=== PATIENT | female | born 1995 | race Two or more races ===

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

== ENCOUNTER 2017-07-26 22:00 | Emergency (ER) | payer OTHER ==
[2017-07-26 23:11] LABS: KETONE, URINE AUTO RFX NEGATIVE (NEGATIVE); NITRITE, URINE AUTO RFX NEGATIVE (NEGATIVE); RBC, URINE AUTO RFX 38 /HPF (0-3); SPECIFIC GRAVITY UR AUTO RFX 1.013 (1.002-1.035); SQUAM EPITHELIAL CELL UR AURFX 1 /HPF (0-6)
[2017-07-26 23:13] LABS: LEUKOCYTE ESTERASE UR AUTO RFX 3+ (NEGATIVE); WBC, URINE AUTO RFX TNTC /HPF (0-3)
[2017-07-27] MEDS: PHENAZOPYRIDINE 100 MG TAB PO ×2 (01:45)
[2017-07-27] MEDS: ACETAMINOPHEN 325 MG TAB PO ×2 (01:45)
[2017-07-27] MEDS: CIPROFLOXACIN 500 MG TAB PO ×2 (01:45)
== END 2017-07-27 01:47 | disposition home or self-care (01) ==
LOC: M ED 22:00
DX: N10 Acute pyelonephritis (principal); N30.91 Cystitis, unspecified with hematuria
CPT/HCPCS: 81001

== ENCOUNTER 2018-04-18 22:08 | Emergency (ER) | payer OTHER ==
[~2018-04-18] VITALS: Ht 162.6 cm; Wt 71.8 kg
[~2018-04-18 22:08] MED LIST: CIPR-249 PO; PYRI1TAB5 PO
[2018-04-18] MEDS ORDERED: WELLTAB38 (22:25)
[2018-04-18] MEDS ORDERED: TRINTAB3 (22:25)
[2018-04-18] MEDS ORDERED: PHENAZOPYRIDINE 100 MG TAB PO ONE (22:45)
[2018-04-18] MEDS ORDERED: CEPHALEXIN 500 MG CAP PO ONE (23:30)
[2018-04-18] MEDS ORDERED: KEFL500C17 PO (23:39)
[2018-04-18] MEDS ORDERED: PYRI1TAB5 PO (23:39)
[2018-04-18 23:46] VITALS: BP 121/72
[2018-04-19] MEDS ORDERED: CEPHALEXIN 500 MG CAP PO ONE
[2018-04-19] MEDS ORDERED: PHENAZOPYRIDINE 100 MG TAB PO SCH (09:00)
[2018-04-19] MEDS ORDERED: CEPHALEXIN 500 MG CAP PO SCH (09:00)
== END 2018-04-18 23:52 | disposition home or self-care (01) ==
LOC: M ED 22:08
DX: N39.0 Urinary tract infection, site not specified (principal); F41.8 Other specified anxiety disorders

== ENCOUNTER 2019-06-30 13:34 | Emergency (ER) | payer OTHER ==
[~2019-06-30] VITALS: Ht 165.1 cm; Wt 91.4 kg
[~2019-06-30 13:34] MED LIST changes: +KEFL500C17 PO; +TRINTAB; +WELLTAB38
[2019-06-30] MEDS ORDERED: PREN29TA4 PO (13:41)
[2019-06-30] MEDS ORDERED: ZOLO25TA PO (13:41)
[2019-06-30 14:51] VITALS: BP 118/66
[2019-06-30] MEDS ORDERED: NITR-67 PO (14:52)
[2019-06-30] MEDS ORDERED: NITROFURANTOIN (MACROBID) 100 MG CAP PO ONE (15:00)
== END 2019-06-30 15:06 | disposition home or self-care (01) ==
LOC: M ED 13:34
DX: O23.42 Unspecified infection of urinary tract in pregnancy, second trimester (principal); Z3A.27 27 weeks gestation of pregnancy; O99.342 Other mental disorders complicating pregnancy, second trimester; F33.9 Major depressive disorder, recurrent, unspecified; F41.9 Anxiety disorder, unspecified; Z79.899 Other long term (current) drug therapy

== ENCOUNTER 2021-03-22 16:05 | Emergency (ER) | payer OTHER ==
[~2021-03-22] VITALS: Ht 165.1 cm; Wt 109.3 kg
[~2021-03-22 16:05] MED LIST changes: +NITR-67 PO; +PREN29TA4 PO; +ZOLO25TA PO
[2021-03-22 16:07] VITALS: BP 134/81
== END 2021-03-22 21:02 | disposition left against medical advice (07) ==
LOC: M ED 16:05
DX: Z53.29 Procedure and treatment not carried out because of patient's decision for other reasons (principal)